=== PATIENT | female | born 1975 | race Caucasian/White ===

== ENCOUNTER 2017-01-23 05:40 | Day surgery (SDC) | payer BC ==
[~2017-01-23] VITALS: Ht 160 cm; Wt 72.6 kg
[~2017-01-23 05:40] MED LIST: ALEVE220 MG PO; CELEXA20 MG PO; IBUPROFEN800 MG PO; MULTI VITAMIN1 EACH PO; TRAMADOL HCL50 MG PO
--- NOTE | 2017-01-23 09:36 | NUR ---
01/23/17 0936 Lucy Caballero 0905 PATIENT ARRIVES TO PACU AWAKE, BUT DROWSY. C/O BILAT WRIST PAIN. CAN IN PLACE. RESP EVEN AND UNLABORED, HOARSE VOICE, MASK AT 6 LITERS.
--- NOTE | 2017-01-23 11:37 | NUR ---
PT RESTING W/EYES CLOSED WHEN RN ENTERS ROOM. PT OPENS EYES AND ANSWERS QUESTIONS APPROPRIATELY AND FALLS QUICKLY BACK TO SLEEP. CONTINUOUS PULSE OXIMETER REMAINS IN PLACE. SPOUSE REMAINS @ BS.
--- NOTE | 2017-01-23 11:43 | NUR ---
PUDDING GIVEN. SPOUSE ASSISTING PT W/IS. PT TOLERATING PUDDING AND WATER WELL.
--- NOTE | 2017-01-23 11:56 | NUR ---
CAN CATH DC AFTER 8 ML FLUID REMOVAL FROM BALLOON. CAN DC WNL AND PT TOLERATES THAT WELL. 400 ML BRIGHT YELLOW URINE NOTED TO OVERNIGHT CAN BAG. PT UP TO BR W/RN STANDBY. PT AMBULATES WELL AND DENIES DIZZINESS. PT UNABLE TO VOID AND SMALL AMOUNT OF BLOOD NOTED TO HAT. PT BACK IN BED. OXYGEN SATURATION 91% ON RA. OXYGEN BACK ON 1L VIA NC. SDS LEFT OFF @ THIS TIME PER PT REQUEST. WARM BLANKET GIVEN. PILLOWS GIVEN FOR BILAT ARMS AND ICE REMAINS IN PLACE. IV CONTINUES TO RUN @ TKO.
--- NOTE | 2017-01-23 12:45 | NUR ---
PT RESTING W/EYES CLOSED WHEN RN ENTERS ROOM. PT WAKES EASILY AND FALLS QUICKLY BACK TO SLEEP.
--- NOTE | 2017-01-23 13:53 | NUR ---
SPOUSE REMAINS @ BS. PT REPORTS PERSISTANT PAIN IN RUQ AND "CRAMPY" TYPE PAIN THAT RADIATES DOWN RIGHT GROIN. PT REPORTS CRAMPING IN BILAT THIGHS. PT REPORTS "PRESSURE" IN PERINEUM AREA. PT EDUCATION DONE REGARDING POSITIONING DURING SURGERY AND SHE VERBALIZES UNDERSTANDING.
[2017-01-23] MEDS ORDERED: NORCO 5-325 TA1 EACH PO (14:53)
[2017-01-23] MEDS ORDERED: MOTRIN IB200 MG PO (14:53)
--- NOTE | 2017-01-23 14:56 | NUR ---
LE 1435: PT UP TO BR W/RN STANDBY. PT AMBULATES WELL AND DENIES DIZZINESS. PT VOIDS 600 ML BRIGHT YELLOW URINE AND IS BACK TO ROOM. PT CONTINUES TO REPORT PERSISTANT PAIN THAT DOES NOT CHANGE W/POSITION CHANGES. SODA AND SOUP GIVEN. OXYGEN REMOVED @ THIS TIME.
--- NOTE | 2017-01-23 16:12 | NUR ---
SPOUSE @ BS. PT ROUSES EASILY WHEN RN ENTERS ROOM. PT REQ DC HOME. CALL TO MD-MESSAGE LEFT.
--- NOTE | 2017-01-23 16:31 | NUR ---
VERBAL DC INSTRUCTIONS GIVEN TO PT AND HER SPOUSE AND THEY BOTH VERBALIZE UNDERSTANDING.
--- NOTE | 2017-01-23 16:52 | NUR ---
PT DRESSES W/ASSIST OF SPOUSE AND TRANSFERS SELF TO AND PERSONAL VEHICLE WELL AND IS DC HOME.
--- NOTE | 2017-01-23 18:46 | OR ---
[facility] [address] [place], [place] [address] Signed DATE OF OPERATION: 01/23/2017 SURGEON: Kenney Forbes MD DATE OF PROCEDURE: 01/23/2017 PREOPERATIVE DIAGNOSIS: Bilateral carpal tunnel syndrome. PROCEDURE: Bilateral carpal tunnel release. ANESTHESIA: General. SPECIMEN: None. COMPLICATIONS: None. TOURNIQUET TIME: About 15 minutes on each side. WHAT WAS DONE: The patient was taken to the operating room. After anesthesia was induced and airway secured, the patient was positioned, prepped and draped in a routine sterile fashion. On the right hand because of a low lying IV, we simply draped it to the IV site and then exsanguinated with an Esmarch bandage and left the Esmarch bandage wrapped tightly around the distal forearm. We then made a longitudinal incision in line with the radial side of the access of the fourth ray. Incision began at the distal wrist flexion crease and extended distally for about 2 cm. The skin was divided sharply and subcutaneous tissues gently swept aside. Small self-retaining retractor was placed on the transverse volar carpal ligament. It was released with a tip of a 15-blade. We then used a Ragnell-Brooks retractor to elevate the distal flap and using curved tenotomy scissors, released the nerve to the mid palm staying on the ulnar side. We then reversed the Ragnell-Brooks, put another proximal flap and released the distal 3 cm of the antebrachial fascia. This one appeared to have a complete release of the carpal tunnel and the median nerve. The wound was then gently irrigated and closed in a standard fashion. A sterile dressing was applied. We then transitioned to the left arm. The arm was exsanguinated with an Esmarch bandage. The pneumatic tourniquet about the upper arm was inflated to 250 mmHg pressure. We then again placed her in left hand. We again made an incision beginning at the distal wrist flexion crease extending distally about 2 cm in line with the radial aspect of the fourth ray. The skin was divided sharply. Subcutaneous tissues bluntly swept aside and a self-retaining retractor was placed. The transverse volar carpal ligament was then gently released with the tip of a 15-blade. The Ga-Brooks was then used to elevate the distal flap of skin and subcutaneous tissue and the nerve, staying to the ulnar side, was decompressed out to the mid palm. We then placed the Ragnell underneath the proximal flap and did a retrograde dissection Electronically Signed By: KENNEY FORBES MD 01/23/17 1846 PATIENT NAME: DILAN KNOX OPERATIVE REPORT DATE OF : 77 PHYSICIAN: KENNEY FORBES MD REPORT #: [id number] REPORT IS CONFIDENTIAL AND NOT TO BE RELEASED WITHOUT AUTHORIZATION [facility] [address] [place] [id number] Signed releasing the distal 3 cm of the antebrachial fascia. At this point, we appeared to have a complete release of the median nerve, which was easily identified in the wound. The wound was gently irrigated and closed in a standard fashion. A sterile dressing was applied. At this point, the drapes were removed and the patient was transitioned to the care of Dr. Kinney and Dr. Fuentes. We are going to perform a subsequent gynecological procedure. Kenney Forbes MD WFB/MODL /[id number] Electronically Signed By: KENNEY FORBES MD 01/23/17 1846 PATIENT NAME: DILAN KNOX OPERATIVE REPORT DATE OF : 77 PHYSICIAN: KENNEY FORBES MD REPORT #: [id number] REPORT IS CONFIDENTIAL AND NOT TO BE RELEASED WITHOUT AUTHORIZATION
--- NOTE | 2017-02-27 13:33 | OR ---
[facility] [facility] [address] [place], [place] [address] Signed DATE OF OPERATION: 01/23/2017 SURGEON: Jesus Kinney DO PREOPERATIVE DIAGNOSES: 1. Abnormal uterine bleeding. 2. Fibroid uterus. POSTOPERATIVE DIAGNOSES: 1. Abnormal uterine bleeding. 2. Fibroid uterus. PROCEDURES PERFORMED: 1. Laparoscopic hysterectomy. 2. Bilateral salpingectomy. 3. Cystourethroscopy. PUMP HOUSE ENGINEER: Presley Fuentes MD. ANESTHESIA: General. ESTIMATED BLOOD LOSS: Less than 50 mL. FINDINGS: Slightly enlarged fibroid uterus. Status post bilateral tubal ligation with Filshie clips noted. Normal pelvis and ovaries. Normal right upper quadrant appendix. Normal right uterosacral ligament and a wispy left uterosacral ligament. On cystourethroscopy, normal urethra, bladder, and bilateral ureteral jets noted. COMPLICATIONS: None. SPECIMENS: Uterus, cervix, and bilateral fallopian tubes. INDICATIONS: Ms. Knox is a pleasant 41-year-old, G4, P2 white female with fibroid uterus and abnormal bleeding. She has tried OCPs and Mirena IUD in the past. She had a normal hysteroscopy, normal Paps, and normal endometrial biopsy. After expelling the Mirena IUD, the patient requested definitive treatment of her abnormal uterine bleeding with hysterectomy. Risks, benefits, and alternatives were discussed in detail with the patient. The patient understands and wishes to proceed with bilateral salpingectomy, total laparoscopic hysterectomy, and cystourethroscopy. Of note, the patient had an upcoming bilateral carpal tunnel surgery planned and she asked our local orthopedic surgeon, Dr. Forbes, to perform that procedure at the same time as the hysterectomy, which he and I both agreed to. Electronically Signed By: JESUS KINNEY DO 02/27/17 1333 PATIENT NAME: DILAN KNOX OPERATIVE REPORT DATE OF : 77 PHYSICIAN: JESUS KINNEY DO REPORT #: [id number] REPORT IS CONFIDENTIAL AND NOT TO BE RELEASED WITHOUT AUTHORIZATION [facility] [address] [facility] [place] [address] Signed TECHNIQUE: The patient was taken to the operating room and time out was performed to confirm correct patient and correct procedure. Dr. Forbes performed carpal tunnel surgery first. Prior to this, she received Ancef 2 g per SCIP protocol. Please see his note for details. After the completion of his procedure, the patient was prepped and draped in the dorsal lithotomy position with her feet in Yellofins stirrups. ICPs on and running and Ancef had previous been given. No preop heparin was indicated per her Caprini score. A Hernandez catheter was inserted and a weighted speculum was placed in the vagina, and the anterior lip of the cervix was grasped with single tooth tenaculum. The uterus was sounded to depth of 9.5 cm. A medium VCare uterine manipulator was selected and placed without complication. The surgeons gloves were changed and attention was turned to the abdomen. The base of the umbilicus was infiltrated with 0.25% Marcaine with epinephrine and a 5 mm skin incision was made using surgical scalpel. A 5 mm trocar was placed under direct visualization without complication. Pneumoperitoneum was established and a 5 mm assist port was placed in the left lower quadrant under direct visualization without complication after infiltration of 0.25% with epinephrine. A 12 mm incision was made on the right and an 8 mm expanding port was placed under direct visualization without complication. Survey of the abdomen and pelvis was performed with normal findings. The patient had evidence of a previous tubal ligation noted. The left fimbriated end of the fallopian tube was elevated and dissected along the mesosalpinx and the entire left fallopian tube was dissected without complication. This was removed and send with the remainder of specimen for pathologic evaluation. The left uteroovarian ligament was identified, fulgurated, and transected with good hemostasis. The left round ligament was then identified, fulgurated, and transected with good hemostasis. The leaves of the broad ligament were divided. The anterior leaf was dissected and a bladder flap was created without complication. The posterior leaf was dissected to the underdeveloped left uterosacral ligament and the uterine vessels were identified. These were fulgurated and dissected with good hemostasis. The process was repeated on the right side with dissection of the fallopian tube, the uteroovarian ligament, the round ligament, and the broad ligaments. The paracervical tissue was further dissected to ensure that all vessels were fulgurated and divided, and the bladder flap was noted to be down over the surgical cup. Decision was made to proceed with hysterotomy. A Sonicision device was used to create colpotomy starting at 6 o'clock and carried circumferentially around in a clockwise manner to 12 o'clock. The process was repeated on the right side. There was some loss of pneumoperitoneum and careful attention was made to avoid touching the bowel or other tissue to the tip of the Sonicision. The vagina was stuffed with a wet lap to help maintain pneumoperitoneum and good visualization was maintained throughout the procedure. The uterus and cervix were then delivered through the vagina, and the vagina was packed with a wet lap inside of a glove to maintain pneumoperitoneum. V-Loc suture was then used to repair the colpotomy in a running non-locked manner using the Endo stitch device. Careful attention was paid to incorporate the normal-appearing right uterosacral ligament and vaginal mucosa. The left Electronically Signed By: JESUS KINNEY DO 02/27/17 1333 PATIENT NAME: DILAN KNOX OPERATIVE REPORT DATE OF : 77 PHYSICIAN: JESUS KINNEY DO REPORT #: [id number] REPORT IS CONFIDENTIAL AND NOT TO BE RELEASED WITHOUT AUTHORIZATION [facility] [address] [place], [place] [address] Signed uterosacral ligament was under developed and not likely to provide much support in the future. Good apical support was noted at the end of the procedure, and the pelvis was irrigated and found to be hemostatic. Pneumoperitoneum was reduced with visualization of the surgical site with good hemostasis throughout. Trocars were removed and trocar sites were repaired using 4-0 Monocryl and subcutaneous stitch. Attention was turned to cystourethroscopy. The Hernandez catheter was removed and the bladder was backfilled with approximately 200 mL of sterile water. A 30-degree laparoscope was then placed into the ureteral meatus and advanced under direct visualization through the urethra and into the bladder. Normal bladder dome was noted without injury and bilateral ureteral jets were noted. The urethra was examined carefully with no abnormalities noted. The bladder was drained, Hernandez catheter was reinserted, and the patient was taken to PACU in good and stable condition. Sponge and instrument count was correct x2 at the end of the procedure. Dr. Fuentes was present and participated in all portions of procedure. DO ZIGGY Lemus/SHUNL /[id number] Electronically Signed By: JESUS KINNEY DO 02/27/17 1333 PATIENT NAME: DILAN KNOX OPERATIVE REPORT DATE OF : 77 PHYSICIAN: JESUS KINNEY DO REPORT #: [id number] REPORT IS CONFIDENTIAL AND NOT TO BE RELEASED WITHOUT AUTHORIZATION
== END 2017-01-23 16:47 | disposition home or self-care (01) ==
LOC: OPS 05:40 → DS 05:40 → OPS 06:45 → DS 06:45 → OPS 10:30
PROVIDERS: Obstetrics & Gynecology; Orthopaedic Surgery
PROC: 01N50ZZ Release Median Nerve, Open Approach (ICD-10-PCS; principal; 2017-01-23 06:45)
PROC: 01N50ZZ Release Median Nerve, Open Approach (ICD-10-PCS; 2017-01-23 06:45)
PROC: 0UT94ZZ Resection of Uterus, Percutaneous Endoscopic Approach (ICD-10-PCS; 2017-01-23 06:45)
PROC: 0UB74ZZ Excision of Bilateral Fallopian Tubes, Percutaneous Endoscopic Approach (ICD-10-PCS; 2017-01-23 06:45)
DX: D25.1 Intramural leiomyoma of uterus (principal); G56.03 Carpal tunnel syndrome, bilateral upper limbs; F32.9 Major depressive disorder, single episode, unspecified; J30.2 Other seasonal allergic rhinitis
CPT/HCPCS: 01810; 90674; J0690; J1100; J1170; J1885; J2250; J2270; J2405; J2704; J3010; J7120

== ENCOUNTER 2020-08-08 07:55 | Day surgery (SDC) | payer BC ==
[~2020-08-08] VITALS: Ht 160 cm; Wt 73.0 kg
[~2020-08-08 07:55] MED LIST changes: +MOTRIN IB200 MG PO; +NORCO 5-325 TA1 EACH PO
--- NOTE | 2020-08-08 12:08 | NUR ---
ANESTHESIA CAYDEN HERE TO DO SADDLEBLOCK. PATIENT TOLERATED PROCEDURE WITH MINIMAL DISCOMFORT. PATIENT REMAINED IN A SEATED POSITION FOR 10 MINUTES PRIOR TO LAYING BACK IN BED
--- NOTE | 2020-08-08 13:34 | NUR ---
08/08/20 1334 Melodie Murguia 1328: PT ARRIVES TO PACU VIA STRETCHER FOR RECOVERY. VSS, RESP EVEN AND UNLABORED. O2 SATS STABLE ON RA >97%. DRESSING C/D/I. NOE DRAIN IN PLACE. SCDS TURNED ON. PT DENIES NAUSEA
[2020-08-08] MEDS ORDERED: IBUPROFEN600 MG PO (13:45)
[2020-08-08] MEDS ORDERED: ACETAMINOPHEN500 MG PO (13:45)
[2020-08-08] MEDS ORDERED: OXYCODON-ACETA1 EAC2 PO (13:46)
--- NOTE | 2020-08-10 16:51 | PATH ---
[facility] [address] [place], [place] [address] Signed SPECIMEN(S): A RIGHT BUTTOCK SPECIMEN SOURCE: A. RIGHT BUTTOCK CLINICAL HISTORY: Subfascial right buttock soft tissue mass; crushing injury of buttock. Excision soft tissue mass, right buttock. FINAL PATHOLOGIC DIAGNOSIS: Right buttock: - Coleman lobulated adipose tissue. - Negative for atypical features. JVR;sm:C2NR MICROSCOPIC EXAMINATION: Histologic sections of all submitted blocks are examined by light microscopy. These findings, together with the gross examination, support the pathologic diagnosis. GROSS DESCRIPTION: The specimen, labeled "IM, right buttock," is received in formalin and consists of irregular shaped, yellow-muir, lobulated, soft fibroadipose tissue that measures 8.5 x 6.7 x 2.2 cm. Sectioning through the specimen reveals regular adipose tissue. No abnormalities are grossly identified. Manager Labor Delivery sections are submitted in cassettes (A1-A4). JS (under the direct supervision of a pathologist) The Gross Description was prepared using a voice recognition system. The report was reviewed for accuracy; however, sound-alike word errors, addition and/or deletions may occur. If there is any question about this report, please contact Client Services. PERFORMING LABORATORY: The technical component was performed by [facility], [address] [place] [id number] (Choral Director: Cassie Kraus MD; CLIA# [id number]). Professional interpretation was performed by [facility], [facility], [address] [place] [id number]. Diagnostician: Kulwinder Ro MD PATIENT NAME: DILAN KNOX PATHOLOGY DATE OF : 77 REPORT #: [id number] PHYSICIAN: BK PATHOLOGY PCP: GABBIE BERKOWITZ PA-C REPORT IS CONFIDENTIAL AND NOT TO BE RELEASED WITHOUT AUTHORIZATION [address] [address] Signed Pathologist Electronically Signed 08/10/2020 Copies: ~ PATIENT NAME: DILAN KNOX PATHOLOGY DATE OF : 77 REPORT #: [id number] PHYSICIAN: BK PATHOLOGY PCP: GABBIE BERKOWITZ PA-C REPORT IS CONFIDENTIAL AND NOT TO BE RELEASED WITHOUT AUTHORIZATION
--- NOTE | 2020-08-19 10:51 | OR ---
[facility] [address] [place], [place] [address] Signed DATE OF OPERATION: 08/08/2020 SURGEON: Ata Michelle MD PREOPERATIVE DIAGNOSIS: Right buttock soft tissue mass (painful). POSTOPERATIVE DIAGNOSES: 1. Right buttock soft tissue mass (painful). 2. 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 PROCEDURE: Excision of right buttock subfascial soft tissue mass. ANESTHESIA: Spinal anesthetic with intravenous sedation, Mary Pereira CRNA INDICATIONS: This 44-year-old white woman is referred by HESHAM Whitfield with a painful soft tissue mass of her right buttock area. Six years ago, she had a fall causing bruising on the right side of her body including the right ribs down to extending to the knee. She thinks that the area where the lump currently is, was associated with a large hematoma. An ultrasound was performed at that time showing a fluid level and so on. She notes that the lump is "painful all the time." She has had no drainage or other intervention with it. She saw a plastic surgeon in the [facility]. He deferred this to a general surgical resection. The lesion is painful and is not a cosmetic . She maintains good health otherwise. She is now to undergo excision of the mass, understands the risks of bleeding, infection, recurrence, cosmetic deformity, and so on. FINDINGS: The lesion was separate and distinct below the subcutaneous layer. It appeared to be relatively smooth wall lipoma with chronic inflammatory changes. Extended down to the postsacral fascia. It was excised completely, measured approximately 9 cm in aggregate length. Closure of the wound in layers was undertaken after placement of a drain and although there is a minor defect in the area, I believe it will ultimately be cosmetically a good result. DESCRIPTION OF PROCEDURE: The patient was brought to the operating room, given a spinal anesthetic in the preoperative area. Preoperative antibiotic Ancef was given. Sequential compression Electronically Signed By: ATA MICHELLE MD 08/19/20 1051 PATIENT NAME: DILAN KNOX OPERATIVE REPORT DATE OF : 77 REPORT #: [id number] PHYSICIAN: ATA MICHELLE MD PCP: GABBIE BERKOWITZ PA-C REPORT IS CONFIDENTIAL AND NOT TO BE RELEASED WITHOUT AUTHORIZATION [facility] [address] [place], [place] [address] Signed device stockings were used. In the lateral decubitus position, the right buttock area was prepared with a chlorhexidine solution and draped sterilely. The site had been marked preoperatively. A curvilinear incision was made along the line of skin tension, which causes the patient discomfort and therefore local anesthetic was used as an adjunct including Marcaine 0.25%. This allowed for incision through the dermis and electrocautery used for hemostasis. Subcutaneous tissue separate and distinct from the underlying offending mass was and ultimately identified was a smooth-walled apparent lipoma. This was dissected free circumferentially, maintaining normal gluteal fat, but excising in its entirety the lipomatous mass. This extended down to the postsacral fascia. Two relatively larger blood vessels (arteries) were secured with 2-0 Vicryl sutures. Ultimately, the lesion was excised completely measuring 8 to 9 cm in maximal length. Irrigation was undertaken in the wound. Hemostasis was assured with electrocautery. Through a separate stab incision anteriorly, a 7 mm Sravan drain was placed. The wound was closed in layers with interrupted 2-0 Vicryl in the natural subcutaneous tissue of the buttock and skin closed with running subcuticular 3-0 Vicryl. Steri-Strips were applied as was an Acticoat silver sponge dressing. The drains attached to bulb suction. Admittedly, there is a bit of a deformity in the site where the bulky lesion was removed, but I do believe in time, it will fill out and if not adjunctive filler material can be applied to affect that change. She was taken to the recovery room in good condition having suffered no complications. Sponge, needle, and instrument counts were reported as correct x3. MD TALI Cosme/MODL /[id number] cc: HESHAM Whitfield Copies: ~ Electronically Signed By: ATA MICHELLE MD 08/19/20 1051 PATIENT NAME: DILAN KNOX OPERATIVE REPORT DATE OF : 77 REPORT #: [id number] PHYSICIAN: ATA MICHELLE MD PCP: GABBIE BERKOWITZ PA-C REPORT IS CONFIDENTIAL AND NOT TO BE RELEASED WITHOUT AUTHORIZATION
== END 2020-08-08 14:28 | disposition home or self-care (01) ==
LOC: DS 07:55
PROVIDERS: ATTEND Surgery
PROC: 0JB70ZZ Excision of Back Subcutaneous Tissue and Fascia, Open Approach (ICD-10-PCS; principal; 2020-08-08 08:30)
DX: R22.2 Localized swelling, mass and lump, trunk (principal); S77.01 Crushing injury of right hip; W19.XXXS Unspecified fall, sequela; Z87.891 Personal history of nicotine dependence
CPT/HCPCS: 00300; 76942; A9270; J0690; J1644; J1885; J2001; J2250; J2405; J2704; J7121

== ENCOUNTER 2020-09-18 22:18 | Emergency (ER) | payer BC ==
[~2020-09-18] VITALS: Ht 160 cm; Wt 74.0 kg
[~2020-09-18 22:18] MED LIST changes: +ACETAMINOPHEN500 MG PO; +IBUPROFEN600 MG PO; +OXYCODON-ACETA1 EAC2 PO
--- OUTSIDE RECORDS SUMMARY | 2020-09-18 22:20 | XMS ---
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 EKell VISIT COUNT (12 MO.) 1 PANDA [place] TOTAL 1 NOTE: Visits indicate total known visits. ED/UCC VISIT TRACKING (12 MO.) 09/18/2020 22:18 PANDA [place] TYPE: Emergency COMPLAINT: - POST OP PROBLEM INPATIENT VISIT TRACKING (12 MO.) No inpatient visits to display in this time frame [email or web address]
--- NOTE | 2020-09-19 21:09 | CONS ---
[facility] [address] [place], [place] [address] Signed DATE OF CONSULTATION: 09/18/2020 REQUESTING PHYSICIAN: Dr. Conklin, Emergency Medicine. PROBLEM: Right buttock soft tissue swelling. HISTORY OF PRESENT ILLNESS: This 44-year-old, somewhat obese white woman underwent excision of a lipoma of her right gluteus a few weeks ago by me. A drain was placed postoperatively as there was a relatively large space though reapproximation of soft tissues was accomplished as well as could be. The drain was removed as she had minimal output. She called my office earlier today having noted some discomfort and swelling in the area. There was no erythema. She attempted to send some photos via her iPhone to our office, but they were of poor quality she says and she herself presented to the emergency room. I happened to be on-call and in the emergency room at that time, I was asked to see her given her complaint. She has had no fever, chills, or drainage from the site. PHYSICAL EXAMINATION: She looks alert and oriented and well. She is accompanied by her . Right buttock area shows well-healed incision. There is fullness in the area, but no clear evidence of infection in any way. There is no erythema. She has some focal tenderness. The clinical impression is such that she may have a symptomatic seroma. ASSESSMENT: It is highly probable that she has a postoperative wound seroma from wide excision of a lipoma from the buttock area. I have recommended ultrasound evaluation and if present, drainage as appropriate. DESCRIPTION OF PROCEDURE: In the lateral decubitus position (left side down), the right buttock was stabilized in the presence of her nurse and using the [employer] ultrasound device interrogation of the area undertaken confirming findings consistent with seroma. The area was then prepared with a chlorhexidine solution and 1% lidocaine was injected locally. Under direct visualization with a large syringe and an 18-gauge needle, the seroma cavity was encountered and aspiration undertaken delivering a very typical seroma type fluid. 125 mL in total was obtained. Ultrasound was repeated showing complete decompression of the site. She tolerated the Electronically Signed By: ATA MICHELLE MD 09/19/20 2103 PATIENT NAME: DILAN KNOX CONSULTATION DATE OF : 77 REPORT #: [id number] PHYSICIAN: ATA MICHELLE MD PCP: GABBIE BERKOWITZ PA-C REPORT IS CONFIDENTIAL AND NOT TO BE RELEASED WITHOUT AUTHORIZATION [facility] [address] [place], [place] [address] Signed procedure well. A Band-Aid was applied. PLAN: If she has reaccumulation of fluid, consideration might be made for placement of a seroma catheter and Sravan drain. There is at least a 25% chance of this occurring, but it may not either. If she has problems, she will call our office. MD TALI Cosme/MC /[id number] cc: Ford Conklin MD Copies: FORD CONKLIN MD ~ Electronically Signed By: ATA MICHELLE MD 09/19/20 2109 PATIENT NAME: DILAN KNOX CONSULTATION DATE OF : 77 REPORT #: [id number] PHYSICIAN: ATA MICHELLE MD PCP: GABBIE BERKOWITZ PA-C REPORT IS CONFIDENTIAL AND NOT TO BE RELEASED WITHOUT AUTHORIZATION
== END 2020-09-18 23:18 | disposition home or self-care (01) ==
LOC: ED 22:18
DX: L76.34 Postprocedural seroma of skin and subcutaneous tissue following other procedure (principal)
CPT/HCPCS: 10160; 99283-25; G0463

== ENCOUNTER 2020-09-26 08:11 | Day surgery (SDC) | payer BC ==
--- NOTE | 2020-09-26 11:18 | NUR ---
1117 tolerated procedure well. ready to go home. no qustions was instructed by dr hopkins. renita jackson.
--- NOTE | 2020-09-27 12:44 | OR ---
[facility] [address], [place] [address] Signed DATE OF OPERATION: 09/26/2020 SURGEON: Ata Michelle MD PREOPERATIVE DIAGNOSIS: Possible recurrent right gluteal seroma. POSTOPERATIVE DIAGNOSIS: Minimal remaining seroma, right gluteus. PROCEDURE: Ultrasonographic evaluation of buttock and aspiration of 20 mL of seroma fluid. ANESTHESIA: 1% lidocaine. 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 She was seen by me last week and presented to the emergency room with swelling in the area of incision. Notably, she had a drain in place, postoperatively draining ceruminous fluid which was removed at the appropriate time. In the emergency room when seen last week, ultrasound-guided drainage of about 120 mL of seroma fluid was undertaken. Mindful of the possibility of recurrence, she called my office on Friday (yesterday) noting that there was tenderness and some swelling. Again, on that basis, I have asked her to return in consider for placement of a seroma cath. The risks of bleeding, infection, and so forth were related to aspiration or seroma catheter placement was reviewed. She understands. FINDINGS: Ultrasound did not demonstrate a large seromatous collection as there had been before. There was some fluid, however, and 20 mL in total was drained. The seroma catheterization was not effective for placement and I did forego that; drainage appears to be complete at this time. DESCRIPTION OF PROCEDURE: The patient was examined and ultrasound undertaken of the right gluteal area as physical exam showed firmness but no finding as had been previously seen. Ultrasonographic evaluation showed no sign of large seroma space. The area was then prepared with Electronically Signed By: ATA MICHELLE MD 09/27/20 1244 PATIENT NAME: DILAN KNOX OPERATIVE REPORT DATE OF : 77 REPORT #: [id number] PHYSICIAN: ATA MICHELLE MD PCP: GABBIE BERKOWITZ PA-C REPORT IS CONFIDENTIAL AND NOT TO BE RELEASED WITHOUT AUTHORIZATION [facility] [address], [place] [address] Signed chlorhexidine solution and draped sterilely. 1% lidocaine injected locally. In the area of maximal fullness and tenderness, an 18-gauge needle with 20 mL syringe was insinuated into the deep soft tissue ultimately identifying a pocket of fluid about 20 mL in total of an infected seroma-type fluid. In keeping the needle in the same position through a separate site, additionally anesthetized a seroma catheter was passed through the skin directed to the area. Only scant fluid was obtained and therefore the seroma catheter was actually removed. The seroma aspiration was then complete. Band-Aids were applied to both sites. Photographs were taken. The patient tolerated procedure well. PLAN: If she has recurrent concerns or recurrent seroma formation, she will let me know and consideration might be made for an additional attempt at seroma catheter placement if appropriate or possibly sclerosis therapy with doxycycline. MD TALI Cosme/MC /[id number] cc: HESHAM Whitfield Copies: ~ Electronically Signed By: ATA MICHELLE MD 09/27/20 1244 PATIENT NAME: DILAN KNOX OPERATIVE REPORT DATE OF : 77 REPORT #: [id number] PHYSICIAN: ATA MICHELLE MD PCP: GABBIE BERKOWITZ PA-C REPORT IS CONFIDENTIAL AND NOT TO BE RELEASED WITHOUT AUTHORIZATION
== END 2020-09-26 18:00 | disposition home or self-care (01) ==
LOC: DS 08:11
PROVIDERS: ATTEND Surgery
PROC: 0J993ZZ Drainage of Buttock Subcutaneous Tissue and Fascia, Percutaneous Approach (ICD-10-PCS; principal; 2020-09-26)
DX: L76.34 Postprocedural seroma of skin and subcutaneous tissue following other procedure (principal)
CPT/HCPCS: C1729

== ENCOUNTER 2021-03-07 09:41 | Emergency (ER) | payer BC ==
[~2021-03-07] VITALS: Ht 160 cm; Wt 72.6 kg
--- OUTSIDE RECORDS SUMMARY | 2021-03-07 09:44 | XMS ---
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 E.Juan Antonio VISIT COUNT (12 MO.) 2 PANDA [facility] TOTAL 2 NOTE: Visits indicate total known visits. ED/UCC VISIT TRACKING (12 MO.) 03/07/2021 09:42 [facility] [place] TYPE: Emergency COMPLAINT: - COUGH, SOB 09/18/2020 22:18 [facility] [place] TYPE: Emergency COMPLAINT: - POST OP PROBLEM DIAGNOSES: - Postprocedural seroma of skin and subcutaneous tissue following other procedure INPATIENT VISIT TRACKING (12 MO.) No inpatient visits to display in this time frame [email or web address]
== END 2021-03-07 10:23 | disposition home or self-care (01) ==
LOC: ED 09:41
DX: U07.1 COVID-19 (principal); Z79.899 Other long term (current) drug therapy
CPT/HCPCS: 99284

== ENCOUNTER 2022-03-26 08:41 | Emergency (ER) | payer BC ==
[~2022-03-26] VITALS: Ht 160 cm; Wt 72.6 kg
--- OUTSIDE RECORDS SUMMARY | 2022-03-26 08:44 | XMS ---
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 EKell VISIT COUNT (12 MO.) 1 PANDA [facility] TOTAL 1 NOTE: Visits indicate total known visits. ED/UCC VISIT TRACKING (12 MO.) 03/26/2022 08:43 [facility] [place] TYPE: Emergency COMPLAINT: - CHEST PAIN INPATIENT VISIT TRACKING (12 MO.) No inpatient visits to display in this time frame [email or web address]
[2022-03-26] MEDS ORDERED: MELATONIN10 M2 PO (08:58)
--- NOTE | 2022-03-26 20:46 | EKG ---
[facility] [address] [facility] [place], [place] [address] Signed Normal sinus rhythm Normal ECG No previous ECGs available Confirmed by NIKIA LOMELI MD ([id number]) on 03/26/2022 8:46:18 PM Electronically Signed By: NIKIA LOMELI MD 03/26/222045 PATIENT NAME: DILAN KNOX Electrocardiogram DATE OF : 77 PHYSICIAN: NIKIA LOMELI MD REPORT #: [id number] REPORT IS CONFIDENTIAL AND NOT TO BE RELEASED WITHOUT AUTHORIZATION
== END 2022-03-26 10:48 | disposition home or self-care (01) ==
LOC: ED 08:41
DX: R00.2 Palpitations (principal); Z20.822 Contact with and (suspected) exposure to COVID-19
CPT/HCPCS: 36415; 71045; 80053; 83735; 84443; 84484; 85025; 93005; 93010; 99285-25; A9270